=== PATIENT | female | born 1980 | race Caucasian/White ===

== ENCOUNTER 2016-08-01 09:21 | Emergency (ER) | payer OTHER ==
[~2016-08-01 09:21] MED LIST: ACET50TA PO; ANUS2.5C2 PR; DOCU10ELUD PO; IBUP80TA PO; MOM30SS PO; [UNRECOGNIZED DRUG - OTHER] PO
[2016-08-01] MEDS ORDERED: METOCLOPRAMIDE INJ 10MG/2ML VIAL (J2765) As Ordered ONE (10:32)
[2016-08-01 10:36] LABS: MEAN CORPUSCULAR HEMOGLOBIN 30.3 pg (27.0-33.0); MEAN CORPUSCULAR HGB CONC 32.9 g/dl (32.0-36.5); MEAN CORPUSCULAR VOLUME 92.2 fl (80.0-96.0); RED CELL DISTRIBUTION WIDTH 11.8 % (11.5-14.5); WHITE BLOOD COUNT 6.7 K/mm3 (4.0-10.0)
[2016-08-01 11:16] LABS: ALBUMIN 4.2 GM/DL (3.2-5.2); ALBUMIN/GLOBULIN RATIO 1.17 (1.00-1.93); ALKALINE PHOSPHATASE 43 U/L (45-117); ALT/SGPT 18 U/L (12-78); ANION GAP 12 MEQ/L (8-16); AST/SGOT 14 U/L (15-37); BILIRUBIN,TOTAL 0.4 MG/DL (0.2-1.0); BLOOD UREA NITROGEN 8 MG/DL (7-18); CALCIUM LEVEL 8.9 MG/DL (8.5-10.1); CARBON DIOXIDE LEVEL 24 MEQ/L (21-32); CHLORIDE LEVEL 104 MEQ/L (98-107); CREATININE FOR GFR 0.78 MG/DL (0.55-1.02); GLOMERULAR FILTRATION RATE > 60.0 (>60); GLUCOSE, FASTING 94 MG/DL (70-105); HCG, SERUM QUANTITATIVE 82916 MIU/ML; POTASSIUM SERUM 4.1 MEQ/L (3.5-5.1); SODIUM LEVEL 140 MEQ/L (136-145); TOTAL PROTEIN 7.8 GM/DL (6.4-8.2)
--- NOTE | 2016-08-01 12:08 | EDDOCDS ---
Nurse's Notes [facility] Name: Katarina Newberry Age: 35 yrs Sex: Female : 1980 Arrival Date: 08/01/2016 Time: 09:21 Bed I4 / M4 Private MD: Jeniffer Gamez Diagnosis: related conditions, unspecified, first trimester-SIUP 7 weeks 5 days;Abnormal uterine and vaginal bleeding, unspecified;Pelvic and perineal pain Presentation: 08/01 09:27 Presenting complaint: Patient states: states ?8 weeks , vaginal bleeding and ml6 cramping since states 1 pad every 5 hours. Risk factors: The patient reports no loss of conciousness prior to arrival. This patient has not had a hysterectomy. This patient has not begun menopause. Adult Sepsis Screening: The patient does not have new or worsening altered mentation. Patient's respiratory rate is less than 22. Systolic blood pressure is greater than 100. Patient has a qSOFA score of 0- Negative Sepsis Screen. Suicide/Homicide risk assessment- the patient denies having any suicidal and/or homicidal ideations and does not present with any other emotional, behavioral or mental health complaints. 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 Transition of care: patient was not received from another setting of care. 09:27 Acuity: HANH Level 3 ml6 09:27 Method Of Arrival: Walkin/Carried/Asstd ml6 Triage Assessment: 09:30 General: Appears in no apparent distress, Behavior is appropriate for age, cooperative. ml6 Pain: Location: abdomen Pain currently is 3 out of 10 on a pain scale. Pain does not radiate. Quality of pain is described as crampy, Pain began 2-3 days ago Is continuous Alleviated by nothing. Aggravated by increased activity. HIV screening NA for this visit Offered previously. Neurological: No deficits noted. Cardiovascular: No deficits noted. : Reports vaginal bleeding that is light flow since . 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 none - PMHx: none; - PSHx: none; - Social history: Smoking status: Patient states was never smoker of tobacco. No barriers to communication noted, Speaks appropriately for age. - Family history: Not pertinent. - : The pt / caregiver states he / she is not on anticoagulants. Home medication list is obtained from the patient. - Exposure Risk Screening:: None identified. Screenin:31 Screening information is obtained from the patient. Fall risk: No risks identified. kr3 Assistance ADL's: requires no assistance with activities of daily living. Abuse/DV Screen: The patient / caregiver reports he/she is: not in a situation that causes fear, pain or injury. Nutritional screening: No deficits noted. Advance Directives: Currently, there is no health care proxy. home support is adequate. Assessment: 10:30 General: Appears in no apparent distress, comfortable, Behavior is appropriate for age, kr3 cooperative. Pain: Pain currently is 2 out of 10 on a pain scale. Quality of pain is described as crampy. Respiratory: Respiratory effort is even, unlabored. : deferred to provider Reports vaginal bleeding that is light flow. Derm: Skin is normal. 11:16 Reassessment: Patient appears in no apparent distress at this time. Neurological: Level kr3 of Consciousness is awake, alert. 12:07 Reassessment: Patient appears in no apparent distress at this time. Patient denies pain kr3 at this time. Vital Signs: 09:23 BP 132 / 76; Pulse 77; Resp 18 S; Temp 98.8(O); Pulse Ox 100% on R/A; Weight 79.38 kg dd6 (R); Height 5 ft. 8 in. (172.72 cm) (R); 12:06 BP 115 / 75; Pulse 73; Resp 16; Temp 99(O); Pulse Ox 97% on R/A; kr3 09:23 Body Mass Index 26.61 (79.38 kg, 172.72 cm) dd6 Vitals: 09:23 Log In Time: August 01, 2016 at 09:20. dd6 ED Course: 09:23 Patient visited by Fito Potts PCA. dd6 09:23 Jeniffer Gamez is Private Physician. dd6 09:23 Patient moved to Waiting dd6 09:24 Patient moved to Pre RCE dd6 09:28 Triage Initiated ml6 10:02 Eryn Mayorga PA-C is PHCP. ef1 10:02 Salvador Valadez MD is Attending Physician. ef1 10:03 Patient visited by Eryn Mayorga PA-C. ef1 10:03 Patient moved to I4 / M4 jmk 10:25 Patient moved to Ultrasound sm5 10:30 Complete Blood Count Sent. kr3 10:30 Hcg, Serum Quantitative Sent. kr3 10:30 Urinalysis Sent. kr3 10:30 Urine Culture Sent. kr3 10:30 Complete Comphrensive Metabolic Sent. kr3 10:31 The patient / caregiver is instructed regarding the plan of care and ED course. Patient kr3 has correct armband on for positive identification. Placed in gown. Bed in low position. Call light in reach. Side rails up X 1. 10:31 Inserted saline lock: 20 gauge in left antecubital area and blood collected. The kr3 patient tolerated the procedure well. 11:14 Patient moved to I4 / M4 jam1 11:15 Patient visited by Sara Briggs RN. kr3 11:47 Patient visited by Eryn Mayorga PA-C. ef1 11:57 Dami Kelley MD is Referral Physician. ef1 11:58 No procedures done that require assistance. kr3 12:07 Discontinued lock intact, bleeding controlled, pressure dressing applied, No kr3 redness/swelling at site. Administered Medications: 11:16 Drug: NS 0.9% 1000 ml [sodium chloride 0.9 % intravenous solution] Route: IV; Rate: kr3 bolus; Site: left antecubital; 12:06 Follow up: BP 115 / 75; Pulse 73 bpm; Resp 16 bpm; Temp 99 Oral; Pulse Ox 97% RA; IV kr3 Status: Infusion discontinued; IV Intake: 600ml 11:16 Drug: Metoclopramide 10 mg [metoclopramide 5 mg/mL injection solution] Route: IV; Rate: kr3 40 mg/hr; Infused Over: 15 mins; Site: left antecubital; 11:58 Follow up: IV Status: Completed infusion kr3 Intake: 12:06 IV: 600.00ml; Total: 600.00ml. kr3 Order Results: Lab Order: Complete Blood Count; SPEC'M 08/01/16 10:27 Test: WHITE BLOOD COUNT; Value: 6.7; Range: 4.0-10.0; Units: K/mm3; Status: F Test: RED BLOOD COUNT; Value: 4.08; Range: 4.00-5.40; Units: M/mm3; Status: F Test: HEMOGLOBIN; Value: 12.4; Range: 12.0-16.0; Units: g/dl; Status: F Test: HEMATOCRIT; Value: 37.7; Range: 36.0-47.0; Units: %; Status: F Test: MEAN CORPUSCULAR VOLUME; Value: 92.2; Range: 80.0-96.0; Units: fl; Status: F Test: MEAN CORPUSCULAR HEMOGLOBIN; Value: 30.3; Range: 27.0-33.0; Units: pg; Status: F Test: MEAN CORPUSCULAR HGB CONC; Value: 32.9; Range: 32.0-36.5; Units: g/dl; Status: F Test: RED CELL DISTRIBUTION WIDTH; Value: 11.8; Range: 11.5-14.5; Units: %; Status: F Test: PLATELET COUNT, AUTOMATED; Value: 266; Range: 150-450; Units: k/mm3; Status: F Lab Order: Hcg, Serum Quantitative; SPEC'M 08/01/16 10:27 Test: HCG, SERUM QUANTITATIVE; Value: [id number]; Units: MIU/ML; Status: F Test Note: ; GESTATIONAL AGE APPROXIMATE HCG RANGE (MIU/ML) 0.2-1 WEEK 5-50 1-2 WEEKS 50-500 2-3 WEEKS 100-5,000 3-4 WEEKS 500-10,000 4-5 WEEKS 1,000-50,000 5-6 WEEKS 10,000-100,000 6-8 WEEKS 15,000-200,000 2-3 MONTHS 10,000-100,000 NON FEMALES LESS THAN 3.0 Patient samples may contain human heterophilic antibodies that could react with immunoassays to give falsely elevated or depressed results. This assay has been designed to minimize interference from heterophilic antibodies. Elevated hCG levels have also been associated with trophoblastic disease and nontrophoblastic neoplasms. The possibility of having these diseases should be considered before a diagnosis of is made. This test is not intended for use as a surrogate marker for aiding in the diagnosis or monitoring the treatment of cancer patients. [employer] methodology. Lab Order: Urinalysis; SPEC'M 08/01/16 10:27 Test: APPEARANCE, URINE; Value: CLEAR; Range: CLEAR; Status: F Test: COLOR, URINE; Value: YELLOW; Range: YELLOW; Status: F Test: PH,URINE; Value: 7.0; Range: 5.0-9.0; Units: UNITS; Status: F Test: SPECIFIC GRAVITY URINE AUTO; Value: 1.006; Range: 1.002-1.035; Status: F Test: PROTEIN, URINE AUTO; Value: NEGATIVE; Range: NEGATIVE; Units: mg/dL; Status: F Test: GLUCOSE, URINE (UA) AUTO; Value: NEGATIVE; Range: NEGATIVE; Units: mg/dL; Status: F Test: KETONE, URINE AUTO; Value: NEGATIVE; Range: NEGATIVE; Units: mg/dL; Status: F Test: UROBILINOGEN, URINE AUTO; Value: 0.2; Range: 0.0-2.0; Units: mg/dL; Status: F Test: BILIRUBIN, URINE AUTO; Value: NEGATIVE; Range: NEGATIVE; Status: F Test: NITRITE, URINE AUTO; Value: NEGATIVE; Range: NEGATIVE; Status: F Test: LEUKOCYTE ESTERASE, URINE AUTO; Value: NEGATIVE; Range: NEGATIVE; Status: F Test: BLOOD, URINE BLOOD; Value: NEGATIVE; Range: NEGATIVE; Status: F Test: WBC, URINE AUTO; Value: 0; Range: 0-3; Units: /HPF; Status: F Test: RBC, URINE AUTO; Value: 0; Range: 0-3; Units: /HPF; Status: F Test: BACTERIA, URINE AUTO; Value: 1+; Range: NEGATIVE; Abnormal: Above high normal; Status: F Test: SQUAMOUS EPITHELIAL CELL UR AU; Value: 0; Range: 0-6; Units: /HPF; Status: F Test: MUCUS, URINE; Value: SMALL; Range: NEGATIVE; Status: F Test: HYALINE CAST, URINE AUTO; Value: 0; Range: 0-1; Units: /LPF; Status: F Lab Order: Complete Comphrensive Metabolic; SPEC'M 08/01/16 10:27 Test: GLUCOSE, FASTING; Value: 94; Range: 70-105; Units: MG/DL; Status: F Test: BLOOD UREA NITROGEN; Value: 8; Range: 7-18; Units: MG/DL; Status: F Test: CREATININE FOR GFR; Value: 0.78; Range: 0.55-1.02; Units: MG/DL; Status: F Test: GLOMERULAR FILTRATION RATE; Value: > 60.0; Range: >60; Status: F Test: SODIUM LEVEL; Value: 140; Range: 136-145; Units: MEQ/L; Status: F Test: POTASSIUM SERUM; Value: 4.1; Range: 3.5-5.1; Units: MEQ/L; Status: F Test: CHLORIDE LEVEL; Value: 104; Range: 98-107; Units: MEQ/L; Status: F Test: CARBON DIOXIDE LEVEL; Value: 24; Range: 21-32; Units: MEQ/L; Status: F Test: ANION GAP; Value: 12; Range: 8-16; Units: MEQ/L; Status: F Test: CALCIUM LEVEL; Value: 8.9; Range: 8.5-10.1; Units: MG/DL; Status: F Test: AST/SGOT; Value: 14; Range: 15-37; Abnormal: Below low normal; Units: U/L; Status: F Test: ALT/SGPT; Value: 18; Range: 12-78; Units: U/L; Status: F Test: ALKALINE PHOSPHATASE; Value: 43; Range: 45-117; Abnormal: Below low normal; Units: U/L; Status: F Test: BILIRUBIN,TOTAL; Value: 0.4; Range: 0.2-1.0; Units: MG/DL; Status: F Test: TOTAL PROTEIN; Value: 7.8; Range: 6.4-8.2; Units: GM/DL; Status: F Test: ALBUMIN; Value: 4.2; Range: 3.2-5.2; Units: GM/DL; Status: F Test: ALBUMIN/GLOBULIN RATIO; Value: 1.17; Range: 1.00-1.93; Status: F Test Note: ; Units are mL/min/1.73 m2 Chronic Kidney Disease Staging per NKF: Stage I & II GFR >=60 Normal to Mildly Decreased Stage III GFR 30-59 Moderately Decreased Stage IV GFR 15-29 Severely Decreased Stage V GFR <15 Very Little GFR Left ESRD GFR <15 on [employer]CHO[employer] Outcome: 10:31 Ultrasound Study completed. kr3 11:57 Discharge ordered by Provider. ef1 12:07 Discharge Assessment: patient administered narcotics - no. The following High Risk kr3 Discharge criteria are identified: None. Discharged to home ambulatory. Condition: stable. Discharge instructions given to patient, Instructed on discharge instructions, follow up and referral plans. medication usage, Demonstrated understanding of instructions, medications, Pt was receptive of discharge instructions/ teaching. Prescriptions given X 1. Property sent home with patient. 12:07 Patient left the ED. kr3 Signatures: William Dahl,RN RN Haley De Souza, CUSTOMS CONSULTANT CUSTOMS CONSULTANT jam1 Madai Jean Baptiste sm5 Sara Briggs,RN RN kr3 Fito Potts, CUSTOMS CONSULTANT CUSTOMS CONSULTANT dd6 Eryn Mayorga, PA-C PA-C ef1 Ramone Devries, RN RN ml6 Corrections: (The following items were deleted from the chart) 09:29 09:27 Presenting complaint: Patient states: states ?8 weeks , vaginal bleeding ml6 and cramping since ml6 MTDD
--- NOTE | 2016-08-01 12:08 | EDDOCDS ---
Physician Documentation [facility] Name: Katarina eNwberry Age: 35 yrs Sex: Female : 1980 Arrival Date: 08/01/2016 Time: 09:21 Bed I4 / M4 Private MD: Jeniffer Gamez Disposition: 08/01/16 11:57 Discharged to Home/Self Care. Impression: related conditions, unspecified, first trimester - SIUP 7 weeks 5 days, Abnormal uterine and vaginal bleeding, unspecified, Pelvic and perineal pain. - Condition is Stable. - Discharge Instructions: Medicines During , First Trimester of , Kqqb-vb-Oksi, Abdominal Pain During , Wowk-qm-Gvjw. - Prescriptions for Reglan 10 mg Oral Tablet - take 1 tablet by ORAL route every 6 hours take 30 minutes before meals and at bedtime; 20 tablet. - Medication Reconciliation, Local Pharmacy Hours form. - Follow up: Dami Kelley; When: 1 - 2 days; Reason: Further diagnostic work-up, Recheck today's complaints, Continuance of care. Follow up: Emergency Department; Reason: Worsening of conditions. - Problem is new. - Symptoms have improved. Historical: - Allergies: no known allergies; - Home Meds: 1. none - PMHx: none; - PSHx: none; - Social history: Smoking status: Patient states was never smoker of tobacco. No barriers to communication noted, Speaks appropriately for age. - Family history: Not pertinent. - : The pt / caregiver states he / she is not on anticoagulants. Home medication list is obtained from the patient. - Exposure Risk Screening:: None identified. 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 8 in. (172.72 cm) (R); 12:06 BP 115 / 75; Pulse 73; Resp 16; Temp 99(O); Pulse Ox 97% on R/A; kr3 09:23 Body Mass Index 26.61 (79.38 kg, 172.72 cm) dd6 MDM: 10:15 IV Saline Lock ordered. ef1 10:15 Undress patient appropriately for examination ordered. ef1 10:15 NS 0.9% 1000 ml IV at bolus once ordered. ef1 10:16 US 1st trimester Ordered. EDMS 10:16 Complete Blood Count Ordered. EDMS 10:16 Hcg, Serum Quantitative Ordered. EDMS 10:16 Urinalysis Ordered. EDMS 10:17 Urine Culture Ordered. EDMS 10:17 Complete Comphrensive Metabolic Ordered. EDMS 10:19 Metoclopramide 10 mg IV at 40 mg/hr once over 15 mins ordered. ef1 10:56 TRANSVAGINAL US Ordered. EDMS 10:56 DUPLEX SCAN LIMITED (DOPPLER) Ordered. EDMS 11:48 Urinalysis Reviewed. ef1 11:48 Complete Comphrensive Metabolic Reviewed. ef1 11:48 Complete Blood Count Reviewed. ef1 11:48 Hcg, Serum Quantitative Reviewed. ef1 Administered Medications: 11:16 Drug: NS 0.9% 1000 ml [sodium chloride 0.9 % intravenous solution] Route: IV; Rate: kr3 bolus; Site: left antecubital; 12:06 Follow up: BP 115 / 75; Pulse 73 bpm; Resp 16 bpm; Temp 99 Oral; Pulse Ox 97% RA; IV kr3 Status: Infusion discontinued; IV Intake: 600ml 11:16 Drug: Metoclopramide 10 mg [metoclopramide 5 mg/mL injection solution] Route: IV; Rate: kr3 40 mg/hr; Infused Over: 15 mins; Site: left antecubital; 11:58 Follow up: IV Status: Completed infusion kr3 Signatures: Dispatcher [employer] EDMS Sara Briggs,RN RN kr3 Eyrn Mayorga, PA-C PAWilliamsC ef1 Ramone Devries RN RN ml6 The chart was reviewed and I authenticate all verbal orders and agree with the evaluation and treatment provided.Corrections: (The following items were deleted from the chart) 10:23 10:16 TYPE & SCREEN+BBK ordered. EDMS EDMS MTDD
--- NOTE | 2016-08-01 13:59 | REP ---
Obstetric sonography: History: Vaginal bleeding. Findings: Transabdominal and transvaginal scanning demonstrate a viable single intrauterine gestation. The embryonic pole measures 14 mm in crown-rump length. This corresponds to a gestational age estimate of 7 weeks 5 days. heart rate is recorded at 160 beats per minute. No subchorionic hemorrhage is seen. There is a 1.2 cm hypoechoic cyst in the maternal left ovary consistent with corpus luteum. No gross anomaly is seen. Impression: Viable single intrauterine gestation at 7 weeks 5 days by crown-rump length. ASIF by today's sonography March 15, 2017. No complication is identified. Signed by Steve Josue MD 08/01/2016 03:18 P
--- NOTE | 2016-08-03 13:08 | EDDOCDS ---
Physician Documentation [facility] Name: Katarina Newberry Age: 35 yrs Sex: Female : 1980 Arrival Date: 08/01/2016 Time: 09:21 Bed I4 / M4 Private MD: Jeniffer Gamez Disposition: 08/01/16 11:57 Discharged to Home/Self Care. Impression: related conditions, unspecified, first trimester - SIUP 7 weeks 5 days, Abnormal uterine and vaginal bleeding, unspecified, Pelvic and perineal pain. - Condition is Stable. - Discharge Instructions: Medicines During , First Trimester of , Pprh-tm-Gqnv, Abdominal Pain During , Klap-qn-Krhy. - Prescriptions for Reglan 10 mg Oral Tablet - take 1 tablet by ORAL route every 6 hours take 30 minutes before meals and at bedtime; 20 tablet. - Medication Reconciliation, Local Pharmacy Hours form. - Follow up: Dami Kelley; When: 1 - 2 days; Reason: Further diagnostic work-up, Recheck today's complaints, Continuance of care. Follow up: Emergency Department; Reason: Worsening of conditions. - Problem is new. - Symptoms have improved. Historical: - Allergies: no known allergies; - Home Meds: 1. none - PMHx: none; - PSHx: none; - Social history: Smoking status: Patient states was never smoker of tobacco. No barriers to communication noted, Speaks appropriately for age. - Family history: Not pertinent. - : The pt / caregiver states he / she is not on anticoagulants. Home medication list is obtained from the patient. - Exposure Risk Screening:: None identified. 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 8 in. (172.72 cm) (R); 12:06 BP 115 / 75; Pulse 73; Resp 16; Temp 99(O); Pulse Ox 97% on R/A; kr3 09:23 Body Mass Index 26.61 (79.38 kg, 172.72 cm) dd6 MDM: 10:15 IV Saline Lock ordered. ef1 10:15 Undress patient appropriately for examination ordered. ef1 10:15 NS 0.9% 1000 ml IV at bolus once ordered. ef1 10:16 US 1st trimester Ordered. EDMS 10:16 Complete Blood Count Ordered. EDMS 10:16 Hcg, Serum Quantitative Ordered. EDMS 10:16 Urinalysis Ordered. EDMS 10:17 Urine Culture Ordered. EDMS 10:17 Complete Comphrensive Metabolic Ordered. EDMS 10:19 Metoclopramide 10 mg IV at 40 mg/hr once over 15 mins ordered. ef1 10:56 TRANSVAGINAL US Ordered. EDMS 10:56 DUPLEX SCAN LIMITED (DOPPLER) Ordered. EDMS 11:48 Urinalysis Reviewed. ef1 11:48 Complete Comphrensive Metabolic Reviewed. ef1 11:48 Complete Blood Count Reviewed. ef1 11:48 Hcg, Serum Quantitative Reviewed. ef1 12:09 [facility] [place] was scanned into [employer] and attached to record. jp5 12:09 Financial registration complete. 5 14:49 T-Sheet-- Draft Copy was scanned into [employer] and attached to record. 14:49 Radiology Report was scanned into [employer] and attached to record. Administered Medications: 11:16 Drug: NS 0.9% 1000 ml [sodium chloride 0.9 % intravenous solution] Route: IV; Rate: kr3 bolus; Site: left antecubital; 12:06 Follow up: BP 115 / 75; Pulse 73 bpm; Resp 16 bpm; Temp 99 Oral; Pulse Ox 97% RA; IV kr3 Status: Infusion discontinued; IV Intake: 600ml 11:16 Drug: Metoclopramide 10 mg [metoclopramide 5 mg/mL injection solution] Route: IV; Rate: kr3 40 mg/hr; Infused Over: 15 mins; Site: left antecubital; 11:58 Follow up: IV Status: Completed infusion kr3 Signatures: Dispatcher [employer] EDMS Stacy Salazar, Sara Douglas RN RN kr3 Eryn Mayorga PA-C PAWilliamsC ef1 Ramone Devries RN RN ml6 Melisa Miller 5 The chart was reviewed and I authenticate all verbal orders and agree with the evaluation and treatment provided.Corrections: (The following items were deleted from the chart) 10:23 10:16 TYPE & SCREEN+BBK ordered. EDMS EDMS Attachments: 12:09 [facility] Payment Agreement jp5 14:49 T-Sheet-- Draft Copy gb Chart Complete MTDD
--- NOTE | 2016-08-03 13:08 | EDDOCDS ---
Physician Documentation [facility] Name: Katarina Newberry Age: 35 yrs Sex: Female : 1980 Arrival Date: 08/01/2016 Time: 09:21 Bed I4 / M4 Private MD: Jeniffer Gaemz Disposition: 08/01/16 11:57 Discharged to Home/Self Care. Impression: related conditions, unspecified, first trimester - SIUP 7 weeks 5 days, Abnormal uterine and vaginal bleeding, unspecified, Pelvic and perineal pain. - Condition is Stable. - Discharge Instructions: Medicines During , First Trimester of , Ywvk-xd-Zehl, Abdominal Pain During , Rrye-dj-Igzn. - Prescriptions for Reglan 10 mg Oral Tablet - take 1 tablet by ORAL route every 6 hours take 30 minutes before meals and at bedtime; 20 tablet. - Medication Reconciliation, Local Pharmacy Hours form. - Follow up: Dami Kelley; When: 1 - 2 days; Reason: Further diagnostic work-up, Recheck today's complaints, Continuance of care. Follow up: Emergency Department; Reason: Worsening of conditions. - Problem is new. - Symptoms have improved. Historical: - Allergies: no known allergies; - Home Meds: 1. none - PMHx: none; - PSHx: none; - Social history: Smoking status: Patient states was never smoker of tobacco. No barriers to communication noted, Speaks appropriately for age. - Family history: Not pertinent. - : The pt / caregiver states he / she is not on anticoagulants. Home medication list is obtained from the patient. - Exposure Risk Screening:: None identified. 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 8 in. (172.72 cm) (R); 12:06 BP 115 / 75; Pulse 73; Resp 16; Temp 99(O); Pulse Ox 97% on R/A; kr3 09:23 Body Mass Index 26.61 (79.38 kg, 172.72 cm) dd6 MDM: 10:15 IV Saline Lock ordered. ef1 10:15 Undress patient appropriately for examination ordered. ef1 10:15 NS 0.9% 1000 ml IV at bolus once ordered. ef1 10:16 US 1st trimester Ordered. EDMS 10:16 Complete Blood Count Ordered. EDMS 10:16 Hcg, Serum Quantitative Ordered. EDMS 10:16 Urinalysis Ordered. EDMS 10:17 Urine Culture Ordered. EDMS 10:17 Complete Comphrensive Metabolic Ordered. EDMS 10:19 Metoclopramide 10 mg IV at 40 mg/hr once over 15 mins ordered. ef1 10:56 TRANSVAGINAL US Ordered. EDMS 10:56 DUPLEX SCAN LIMITED (DOPPLER) Ordered. EDMS 11:48 Urinalysis Reviewed. ef1 11:48 Complete Comphrensive Metabolic Reviewed. ef1 11:48 Complete Blood Count Reviewed. ef1 11:48 Hcg, Serum Quantitative Reviewed. ef1 12:09 [facility] [place] Agreement was scanned into [email or web address] and attached to record. jp5 12:09 Financial registration complete. 5 14:49 T-Sheet-- Draft Copy was scanned into [email or web address] and attached to record. 14:49 Radiology Report was scanned into [email or web address] and attached to record. Administered Medications: 11:16 Drug: NS 0.9% 1000 ml [sodium chloride 0.9 % intravenous solution] Route: IV; Rate: kr3 bolus; Site: left antecubital; 12:06 Follow up: BP 115 / 75; Pulse 73 bpm; Resp 16 bpm; Temp 99 Oral; Pulse Ox 97% RA; IV kr3 Status: Infusion discontinued; IV Intake: 600ml 11:16 Drug: Metoclopramide 10 mg [metoclopramide 5 mg/mL injection solution] Route: IV; Rate: kr3 40 mg/hr; Infused Over: 15 mins; Site: left antecubital; 11:58 Follow up: IV Status: Completed infusion kr3 Signatures: Dispatcher [employer] EDMS Stacy Salazar, Sara Douglas RN RN kr3 Eryn Mayorga PA-C PAWilliamsC ef1 Ramone Devries RN RN ml6 Melisa Miller 5 The chart was reviewed and I authenticate all verbal orders and agree with the evaluation and treatment provided.Corrections: (The following items were deleted from the chart) 10:23 10:16 TYPE & SCREEN+BBK ordered. EDMS EDMS Attachments: 12:09 [facility] Payment Agreement jp5 14:49 T-Sheet-- Draft Copy gb Chart Complete MTDD
--- NOTE | 2016-08-03 13:08 | EDDOCDS ---
Nurse's Notes [facility] Name: Katarina Newberry Age: 35 yrs Sex: Female : 1980 Arrival Date: 08/01/2016 Time: 09:21 Bed I4 / M4 Private MD: Jeniffer Gamez Diagnosis: related conditions, unspecified, first trimester-SIUP 7 weeks 5 days;Abnormal uterine and vaginal bleeding, unspecified;Pelvic and perineal pain Presentation: 08/01 09:27 Presenting complaint: Patient states: states ?8 weeks , vaginal bleeding and ml6 cramping since states 1 pad every 5 hours. Risk factors: The patient reports no loss of conciousness prior to arrival. This patient has not had a hysterectomy. This patient has not begun menopause. Adult Sepsis Screening: The patient does not have new or worsening altered mentation. Patient's respiratory rate is less than 22. Systolic blood pressure is greater than 100. Patient has a qSOFA score of 0- Negative Sepsis Screen. Suicide/Homicide risk assessment- the patient denies having any suicidal and/or homicidal ideations and does not present with any other emotional, behavioral or mental health complaints. Status: Patient is not a supervisor special services or dependent. Transition of care: patient was not received from another setting of care. 09:27 Acuity: HANH Level 3 ml6 09:27 Method Of Arrival: Walkin/Carried/Asstd ml6 Triage Assessment: 09:30 General: Appears in no apparent distress, Behavior is appropriate for age, cooperative. ml6 Pain: Location: abdomen Pain currently is 3 out of 10 on a pain scale. Pain does not radiate. Quality of pain is described as crampy, Pain began 2-3 days ago Is continuous Alleviated by nothing. Aggravated by increased activity. HIV screening NA for this visit Offered previously. Neurological: No deficits noted. Cardiovascular: No deficits noted. : Reports vaginal bleeding that is light flow since . 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 none - PMHx: none; - PSHx: none; - Social history: Smoking status: Patient states was never smoker of tobacco. No barriers to communication noted, Speaks appropriately for age. - Family history: Not pertinent. - : The pt / caregiver states he / she is not on anticoagulants. Home medication list is obtained from the patient. - Exposure Risk Screening:: None identified. Screenin:31 Screening information is obtained from the patient. Fall risk: No risks identified. kr3 Assistance ADL's: requires no assistance with activities of daily living. Abuse/DV Screen: The patient / caregiver reports he/she is: not in a situation that causes fear, pain or injury. Nutritional screening: No deficits noted. Advance Directives: Currently, there is no health care proxy. home support is adequate. Assessment: 10:30 General: Appears in no apparent distress, comfortable, Behavior is appropriate for age, kr3 cooperative. Pain: Pain currently is 2 out of 10 on a pain scale. Quality of pain is described as crampy. Respiratory: Respiratory effort is even, unlabored. : deferred to provider Reports vaginal bleeding that is light flow. Derm: Skin is normal. 11:16 Reassessment: Patient appears in no apparent distress at this time. Neurological: Level kr3 of Consciousness is awake, alert. 12:07 Reassessment: Patient appears in no apparent distress at this time. Patient denies pain kr3 at this time. Vital Signs: 09:23 BP 132 / 76; Pulse 77; Resp 18 S; Temp 98.8(O); Pulse Ox 100% on R/A; Weight 79.38 kg dd6 (R); Height 5 ft. 8 in. (172.72 cm) (R); 12:06 BP 115 / 75; Pulse 73; Resp 16; Temp 99(O); Pulse Ox 97% on R/A; kr3 09:23 Body Mass Index 26.61 (79.38 kg, 172.72 cm) dd6 Vitals: 09:23 Log In Time: August 01, 2016 at 09:20. dd6 ED Course: 09:23 Patient visited by Fito Potts PCA. dd6 09:23 Jeniffer Gamez is Private Physician. dd6 09:23 Patient moved to Waiting dd6 09:24 Patient moved to Pre RCE dd6 09:28 Triage Initiated ml6 10:02 Eryn Mayroga PA-C is PHCP. ef1 10:02 Salvador Valadez MD is Attending Physician. ef1 10:03 Patient visited by Eryn Mayorga PA-C. ef1 10:03 Patient moved to I4 / M4 jmk 10:25 Patient moved to Ultrasound sm5 10:30 Complete Blood Count Sent. kr3 10:30 Hcg, Serum Quantitative Sent. kr3 10:30 Urinalysis Sent. kr3 10:30 Urine Culture Sent. kr3 10:30 Complete Comphrensive Metabolic Sent. kr3 10:31 The patient / caregiver is instructed regarding the plan of care and ED course. Patient kr3 has correct armband on for positive identification. Placed in gown. Bed in low position. Call light in reach. Side rails up X 1. 10:31 Inserted saline lock: 20 gauge in left antecubital area and blood collected. The kr3 patient tolerated the procedure well. 11:14 Patient moved to I4 / M4 jam1 11:15 Patient visited by Sara Briggs RN. kr3 11:47 Patient visited by Eryn Mayorga PA-C. ef1 11:57 Dami Kelley MD is Referral Physician. ef1 11:58 No procedures done that require assistance. kr3 12:07 Discontinued lock intact, bleeding controlled, pressure dressing applied, No kr3 redness/swelling at site. 12:09 [facility] Payment Agreement was scanned into [employer] and attached to record. jp5 13:33 Patient name changed from Katarina\S\A\S\Coni\S\ to Katarina\S\Charisse\S\Coni. EDMS 14:15 US 1st trimester Returned. EDMS 14:49 T-Sheet-- Draft Copy was scanned into [employer] and attached to record. gb 14:49 Radiology Report was scanned into [employer] and attached to record. gb Administered Medications: 11:16 Drug: NS 0.9% 1000 ml [sodium chloride 0.9 % intravenous solution] Route: IV; Rate: kr3 bolus; Site: left antecubital; 12:06 Follow up: BP 115 / 75; Pulse 73 bpm; Resp 16 bpm; Temp 99 Oral; Pulse Ox 97% RA; IV kr3 Status: Infusion discontinued; IV Intake: 600ml 11:16 Drug: Metoclopramide 10 mg [metoclopramide 5 mg/mL injection solution] Route: IV; Rate: kr3 40 mg/hr; Infused Over: 15 mins; Site: left antecubital; 11:58 Follow up: IV Status: Completed infusion kr3 Intake: 12:06 IV: 600.00ml; Total: 600.00ml. kr3 Order Results: Lab Order: Complete Blood Count; [facility] 08/01/16 10:27 Test: WHITE BLOOD COUNT; Value: 6.7; Range: 4.0-10.0; Units: K/mm3; Status: F Test: RED BLOOD COUNT; Value: 4.08; Range: 4.00-5.40; Units: M/mm3; Status: F Test: HEMOGLOBIN; Value: 12.4; Range: 12.0-16.0; Units: g/dl; Status: F Test: HEMATOCRIT; Value: 37.7; Range: 36.0-47.0; Units: %; Status: F Test: MEAN CORPUSCULAR VOLUME; Value: 92.2; Range: 80.0-96.0; Units: fl; Status: F Test: MEAN CORPUSCULAR HEMOGLOBIN; Value: 30.3; Range: 27.0-33.0; Units: pg; Status: F Test: MEAN CORPUSCULAR HGB CONC; Value: 32.9; Range: 32.0-36.5; Units: g/dl; Status: F Test: RED CELL DISTRIBUTION WIDTH; Value: 11.8; Range: 11.5-14.5; Units: %; Status: F Test: PLATELET COUNT, AUTOMATED; Value: 266; Range: 150-450; Units: k/mm3; Status: F Lab Order: Hcg, Serum Quantitative; [facility] 08/01/16 10:27 Test: HCG, SERUM QUANTITATIVE; Value: 71582; Units: MIU/ML; Status: F Test Note: ; GESTATIONAL AGE APPROXIMATE HCG RANGE (MIU/ML) 0.2-1 WEEK 5-50 1-2 WEEKS 50-500 2-3 WEEKS 100-5,000 3-4 WEEKS 500-10,000 4-5 WEEKS 1,000-50,000 5-6 WEEKS 10,000-100,000 6-8 WEEKS 15,000-200,000 2-3 MONTHS 10,000-100,000 NON FEMALES LESS THAN 3.0 Patient samples may contain human heterophilic antibodies that could react with immunoassays to give falsely elevated or depressed results. This assay has been designed to minimize interference from heterophilic antibodies. Elevated hCG levels have also been associated with trophoblastic disease and nontrophoblastic neoplasms. The possibility of having these diseases should be considered before a diagnosis of is made. This test is not intended for use as a surrogate marker for aiding in the diagnosis or monitoring the treatment of cancer patients. Siemens SensibleSelf methodology. Lab Order: Urinalysis; SPEC'[facility] 08/01/16 10:27 Test: APPEARANCE, URINE; Value: CLEAR; Range: CLEAR; Status: F Test: COLOR, URINE; Value: YELLOW; Range: YELLOW; Status: F Test: PH,URINE; Value: 7.0; Range: 5.0-9.0; Units: UNITS; Status: F Test: SPECIFIC GRAVITY URINE AUTO; Value: 1.006; Range: 1.002-1.035; Status: F Test: PROTEIN, URINE AUTO; Value: NEGATIVE; Range: NEGATIVE; Units: mg/dL; Status: F Test: GLUCOSE, URINE (UA) AUTO; Value: NEGATIVE; Range: NEGATIVE; Units: mg/dL; Status: F Test: KETONE, URINE AUTO; Value: NEGATIVE; Range: NEGATIVE; Units: mg/dL; Status: F Test: UROBILINOGEN, URINE AUTO; Value: 0.2; Range: 0.0-2.0; Units: mg/dL; Status: F Test: BILIRUBIN, URINE AUTO; Value: NEGATIVE; Range: NEGATIVE; Status: F Test: NITRITE, URINE AUTO; Value: NEGATIVE; Range: NEGATIVE; Status: F Test: LEUKOCYTE ESTERASE, URINE AUTO; Value: NEGATIVE; Range: NEGATIVE; Status: F Test: BLOOD, URINE BLOOD; Value: NEGATIVE; Range: NEGATIVE; Status: F Test: WBC, URINE AUTO; Value: 0; Range: 0-3; Units: /HPF; Status: F Test: RBC, URINE AUTO; Value: 0; Range: 0-3; Units: /HPF; Status: F Test: BACTERIA, URINE AUTO; Value: 1+; Range: NEGATIVE; Abnormal: Above high normal; Status: F Test: SQUAMOUS EPITHELIAL CELL UR AU; Value: 0; Range: 0-6; Units: /HPF; Status: F Test: MUCUS, URINE; Value: SMALL; Range: NEGATIVE; Status: F Test: HYALINE CAST, URINE AUTO; Value: 0; Range: 0-1; Units: /LPF; Status: F Lab Order: Urine Culture; SPEC'M 08/01/16 10:27 Test: URINE CULTURE; Value: <EXTERNAL COMMENT eCWMed> FULL REPORT IN LAB NOTES (eCW and Medent).; Status: F Test: URINE CULTURE; Value: URINE CULTURE RESULT NO GROWTH; Status: F Lab Order: Complete Comphrensive Metabolic; SPEC'M 08/01/16 10:27 Test: GLUCOSE, FASTING; Value: 94; Range: 70-105; Units: MG/DL; Status: F Test: BLOOD UREA NITROGEN; Value: 8; Range: 7-18; Units: MG/DL; Status: F Test: CREATININE FOR GFR; Value: 0.78; Range: 0.55-1.02; Units: MG/DL; Status: F Test: GLOMERULAR FILTRATION RATE; Value: > 60.0; Range: >60; Status: F Test: SODIUM LEVEL; Value: 140; Range: 136-145; Units: MEQ/L; Status: F Test: POTASSIUM SERUM; Value: 4.1; Range: 3.5-5.1; Units: MEQ/L; Status: F Test: CHLORIDE LEVEL; Value: 104; Range: 98-107; Units: MEQ/L; Status: F Test: CARBON DIOXIDE LEVEL; Value: 24; Range: 21-32; Units: MEQ/L; Status: F Test: ANION GAP; Value: 12; Range: 8-16; Units: MEQ/L; Status: F Test: CALCIUM LEVEL; Value: 8.9; Range: 8.5-10.1; Units: MG/DL; Status: F Test: AST/SGOT; Value: 14; Range: 15-37; Abnormal: Below low normal; Units: U/L; Status: F Test: ALT/SGPT; Value: 18; Range: 12-78; Units: U/L; Status: F Test: ALKALINE PHOSPHATASE; Value: 43; Range: 45-117; Abnormal: Below low normal; Units: U/L; Status: F Test: BILIRUBIN,TOTAL; Value: 0.4; Range: 0.2-1.0; Units: MG/DL; Status: F Test: TOTAL PROTEIN; Value: 7.8; Range: 6.4-8.2; Units: GM/DL; Status: F Test: ALBUMIN; Value: 4.2; Range: 3.2-5.2; Units: GM/DL; Status: F Test: ALBUMIN/GLOBULIN RATIO; Value: 1.17; Range: 1.00-1.93; Status: F Test Note: ; Units are mL/min/1.73 m2 Chronic Kidney Disease Staging per NKF: Stage I & II GFR >=60 Normal to Mildly Decreased Stage III GFR 30-59 Moderately Decreased Stage IV GFR 15-29 Severely Decreased Stage V GFR <15 Very Little GFR Left ESRD GFR <15 on CFO CONTROLLER Radiology Order: US 1st trimester Test: US 1st trimester REASON FOR EXAMINATION: Bleeding; Obstetric sonography:; ; History: Vaginal bleeding.; ; Findings: Transabdominal and transvaginal scanning demonstrate a viable single; intrauterine gestation. The embryonic pole measures 14 mm in crown-rump length.; This corresponds to a gestational age estimate of 7 weeks 5 days. heart; rate is recorded at 160 beats per minute. No subchorionic hemorrhage is seen.; There is a 1.2 cm hypoechoic cyst in the maternal left ovary consistent with; corpus luteum. No gross anomaly is seen.; ; Impression:; ; Viable single intrauterine gestation at 7 weeks 5 days by crown-rump length. ASIF; by today's sonography March 15, 2017. No complication is identified.; ; ; Signed by; Steve Josue MD 08/01/2016 03:18 P; Outcome: 10:31 Ultrasound Study completed. kr3 11:57 Discharge ordered by Provider. ef1 12:07 Discharge Assessment: patient administered narcotics - no. The following High Risk kr3 Discharge criteria are identified: None. Discharged to home ambulatory. Condition: stable. Discharge instructions given to patient, Instructed on discharge instructions, follow up and referral plans. medication usage, Demonstrated understanding of instructions, medications, Pt was receptive of discharge instructions/ teaching. Prescriptions given X 1. Property sent home with patient. 12:07 Patient left the ED. kr3 Signatures: Dispatcher [employer] William Watts,RN RN Haley De Souza, BIOPHYSICS PROFESSOR BIOPHYSICS PROFESSOR jam1 Stacy Salazar, Reg Reg Madai Fernandez sm5 Sara Briggs,RN RN kr3 Fito Potts, BIOPHYSICS PROFESSOR BIOPHYSICS PROFESSOR dd6 Eryn Mayorga, PA-C PA-C ef1 Ramone Devries, RN RN ml6 Melisa Miller jp5 Corrections: (The following items were deleted from the chart) 09:29 09:27 Presenting complaint: Patient states: states ?8 weeks , vaginal bleeding ml6 and cramping since ml6 Chart Complete MTDD
== END 2016-08-01 12:07 | disposition home or self-care (01) ==
LOC: M ED 09:21
DX: O20.8 Other hemorrhage in early pregnancy (principal); O34.81 Maternal care for other abnormalities of pelvic organs, first trimester; R10.2 Pelvic and perineal pain; N83.292 Other ovarian cyst, left side; Z3A.01 Less than 8 weeks gestation of pregnancy
CPT/HCPCS: 36415; 76801; 76817; 80053; 81001; 84702; 85027; 87086; 93976; 96365; 99284; J2765

== ENCOUNTER → 2016-10-13 | Outpatient (REF) | payer OTHER ==
[2016-10-15 00:06] LABS: ENDOMYSIAL ABY IgA Negative (Negative)
== END ==
LOC: M LAB REF 11:10
PROVIDERS: ATTEND Internal Medicine Medical Oncology
DX: D50.9 Iron deficiency anemia, unspecified (principal)

== ENCOUNTER → 2016-10-27 | Outpatient (CLI) | payer OTHER ==
--- NOTE | 2016-10-27 20:19 | REP ---
Clinical: Anatomical evaluation. Comparison: 08/01/2016 . Findings: Examination demonstrates a single live intrauterine in cephalic presentation. motion is identified by technologist. Placenta is noted anteriorly and grade zero without evidence for placenta previa or abruption. Amniotic fluid volume is normal. Cervix measures 3.2 cm in length and appears closed. No evidence for nuchal cord. Gestational age by LMP 20 weeks 4 days with ASIF 03/12/2017 . Gestational age by current measurements 20 weeks 1 day with ASIF 03/15/2017 . FHR equals 157 beats per minute. BPD 4.6 cm 19 weeks 5 days HC 17.7 cm 20 weeks 1 day AC 15.7 cm 20 weeks 6 days FL 3.4 cm 20 weeks 4 days HL 3.3 cm 21 weeks 0 days HC/AC ratio 1.13 Estimated weight 366 grams ( 47th percentile). Anatomical assessment demonstrates normal structures including cranium, choroid plexus, cavum, cerebellum/posterior fossa, facial features, lungs, cardiac ventricular outflow tracts, diaphragm, stomach, cord insertion/three-vessel cord, kidneys/bladder, spine, and extremities. Limited evaluation of the four-chamber heart. Impression: 1. Single live intrauterine in cephalic presentation demonstrating appropriate oval growth. 2. Limited evaluation of the heart. An subtle assessment is otherwise complete. 3. 2.2 cm anterior intramural fibroid. Signed by Sudheer De León MD 10/27/2016 04:23 P
== END ==
LOC: M SMT 09:51
PROVIDERS: ATTEND Advanced Practice Midwife
DX: Z36 Encounter for antenatal screening of mother (principal); Z3A.20 20 weeks gestation of pregnancy

== ENCOUNTER → 2016-11-21 | Outpatient (CLI) | payer OTHER ==
--- NOTE | 2016-11-22 12:54 | REP ---
Clinical: Anatomical evaluation. Comparison: 10/27/2016 . Findings: Examination demonstrates a single live intrauterine in cephalic presentation. motion is identified by technologist. Placenta is noted anteriorly and grade the one without evidence for placenta previa or abruption. Amniotic fluid volume is normal. Cervix measures 5.5 cm in length and appears closed. No evidence for nuchal cord. Gestational age by LMP 24 weeks 1 day with ASIF 03/12/2017 . Gestational age by current measurements 24 weeks 0 days with ASIF 03/13/2017 . FHR equals 126 beats per minute. Estimated weight 692 grams ( 53rd percentile). Anatomical assessment demonstrates normal structures including cranium, choroid plexus, cavum, cerebellum/posterior fossa, lungs, four-chamber heart/ left ventricular outflow tract, diaphragm, stomach, cord insertion/three-vessel cord, kidneys/bladder, spine, and extremities. Impression: In conjunction with prior examination anatomical assessment is complete and normal. Small anterior intramural fibroid remains stable. Signed by Sudheer De León MD 11/21/2016 11:03 A
== END ==
LOC: M SMT 09:57
PROVIDERS: ATTEND Specialist
DX: Z36 Encounter for antenatal screening of mother (principal); Z3A.24 24 weeks gestation of pregnancy

== ENCOUNTER → 2016-12-08 | Outpatient (CLI) | payer OTHER ==
[2016-12-08 13:43] LABS: BASO % 0.3 % (0.0-1.0); EOS % 0.5 % (0.0-3.0); LARGE UNSTAINED CELL # 0.1 K/mm3 (0.0-0.4); LARGE UNSTAINED CELL % 0.9 % (0.0-4.0); LYMPH # 1.5 K/mm3 (1.5-4.5); LYMPH % 21.1 % (24.0-44.0); MEAN CORPUSCULAR HEMOGLOBIN 30.9 pg (27.0-33.0); MEAN CORPUSCULAR HGB CONC 33.4 g/dl (32.0-36.5); MEAN CORPUSCULAR VOLUME 92.4 fl (80.0-96.0); MONO # 0.5 K/mm3 (0.0-0.8); MONO % 7.1 % (0.0-5.0); NEUTROPHILS # 4.7 K/mm3 (1.8-7.7); NEUTROPHILS % 70.1 % (36.0-66.0); PLATELET COUNT, AUTOMATED 291 k/mm3 (150-450); RED CELL DISTRIBUTION WIDTH 12.3 % (11.5-14.5); WHITE BLOOD COUNT 6.8 K/mm3 (4.0-10.0)
== END ==
LOC: M SMT 09:52
PROVIDERS: ATTEND Specialist
DX: Z34.82 Encounter for supervision of other normal pregnancy, second trimester (principal)

== ENCOUNTER → 2016-12-27 | Outpatient (CLI) | payer OTHER ==
--- NOTE | 2016-12-27 11:13 | REP ---
Obstetric ultrasound, stat request for spotting: There is a single intrauterine gestation in a vertex presentation. heart rate is 139 bpm. Cervix is 3.9 cm length. Amniotic fluid index is 17.2 (9.1 - 23.2). The placenta is anterior. There is no placenta previa or placental abruptio. Placenta demonstrates grade 1 maturity. A uterine anterior fibroid is identified measuring up to 3.4 cm. Gestational age by the first ultrasound during this gestation is 20 weeks 6 days with an ASIF of 03/15/2017. biophysical profile: breathing 2 movement 2, tone 2, amniotic fluid volume 2 total /8. Umbilical cord Doppler assessment: SD ratio 2.79 (2.5 - 3.5) Resistive index 0.64 (0.59 - 0.75) Diastolic flow velocity 10.4 cm/sec. These values are in their normal ranges. Signed by Kenji Lewis MD 12/27/2016 11:04 A
== END ==
LOC: M RAD 10:04
PROVIDERS: ATTEND Advanced Practice Midwife
DX: O26.853 Spotting complicating pregnancy, third trimester (principal)

== ENCOUNTER → 2017-02-02 | Outpatient (CLI) | payer OTHER ==
[~2017-02-02] MED LIST changes: +COLA100C5 PO; +IBUP-1114 PO; +IRON65TA PO; +PRENTAB9 PO
--- NOTE | 2017-02-03 08:11 | REP ---
Clinical: Spotting. Growth evaluation. Comparison: 12/27/2016 . Findings: Examination demonstrates a single live intrauterine in cephalic presentation. motion is identified by technologist. Placenta is noted anteriorly and grade one without evidence for placenta previa or abruption. Amniotic fluid volume is normal. Cervix measures 3.8 cm in length and appears closed. No evidence for nuchal cord. Gestational age by LMP 34 weeks 4 days with ASIF 03/12/2017 . Gestational age by current measurements 34 weeks 3 days with ASIF on 05/19 . FHR equals 144 beats per minute. Estimated weight 2663 grams ( 62nd percentile). Amniotic fluid index equals 10.7 cm (8.0 - 24.9). Umbilical cord SD ratio equals 2.40 (2.00 - 3.00). Impression: Single live intrauterine in cephalic presentation demonstrating appropriate interval growth. No gross abnormalities are identified. Amniotic fluid index and estimated weight are within normal range. Signed by Sudheer De León MD 02/03/2017 04:37 A
== END ==
LOC: M SMT 10:52
PROVIDERS: ATTEND Advanced Practice Midwife
DX: O26.853 Spotting complicating pregnancy, third trimester (principal); Z3A.34 34 weeks gestation of pregnancy

== ENCOUNTER → 2017-02-14 | Outpatient (REF) | payer OTHER | LOC: M LAB REF 12:56 | PROVIDERS: ATTEND Specialist | DX: O09.523 Supervision of elderly multigravida, third trimester (principal); Z3A.00 Weeks of gestation of pregnancy not specified ==

== ENCOUNTER 2017-03-16 16:11 | Inpatient (IN) | payer OTHER ==
[~2017-03-16] VITALS: Ht 172.7 cm; Wt 104.6 kg
[2017-03-16] VITALS (25 sets, daily range): BP systolic 98–183; BP diastolic 56–96
[~2017-03-16 16:11] MED LIST changes: -COLA100C5 PO; -IBUP-1114 PO; -IRON65TA PO; -PRENTAB9 PO
[2017-03-16] MEDS ORDERED: IRON65TA PO (17:10)
[2017-03-16] MEDS ORDERED: LACTATED RINGER'S 1000 ML IV STA (17:25)
[2017-03-16] MEDS ORDERED: LR 1,000 ML IV SCH (17:25)
[2017-03-16] MEDS ORDERED: OXYTOCIN DRIP 30 UNITS in APPROPRIATE DILUENT 1 EA IV SCH (17:30)
--- NOTE | 2017-03-16 18:02 | HPEPDOC ---
Obstetrical History & Physical General Date of Admission Mar 16, 2017 at 16:11 History of Present Illness Chief Complaint: Induction of labor (next) Information Provided By: Patient Age: 36 : 3 Term: 1 Pre-term: 0 Abortions: 1 Livin Care Care: Good Care Number of Visits: 16 Dating Final EDC: Mar 12, 2017 Final EDC by: LMP LMP: Jun 05, 2016 1st Trimester Date: Mar 15, 2017 EGA at Admission: 40 Antepartum Course Diagnos(e)s Advanced maternal age and third trimester bleeding Pre- weight (lbs.): 174 Admission Weight (lbs.): 230 Change in Weight (lbs.): 56 Past Medical History Past Obstetrical History #1: Past Obstetrical History: Primgravida Date of Delivery: Mar 16, 2017 (December 2012) Gestation: 42 Type of Delivery: Spontaneous Vaginal Del. 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 Past Medical History Medical History Anemia, asthma, seasonal allergies Surgical History: Dilatation and Curettage, Other (tympanostomy) Family History Significant Family History: Asthma Social History Marital Status: Family situation: Spouse/partner home Psychosocial History: No pertinent psych hx * Smoker: non-smoker Alcohol: Denies Drugs: denies Abuse Violence Screening Have you been hit/kicked/slapp: No Have you been sexually assault: No Imunizations Tdap status: current Influenza Status: needs Allergies Coded Allergies: No Known Allergies (Unverified , 12/03/12) Medications Miscellaneous Medications (Iron) 325 Mg Tab, 325 MG PO Physical Examination Physical Examination GENERAL: Alert and oriented times three. BREAST: . ABDOMEN: Gravid and non-tender to touch. FETUS: Is vertex (VTX) by sterile vaginal examination (SVE), fetus is vertex ( VTX) by Michele. HEART RATE: Regular rate and rhythm. LUNGS: Clear to auscultation (CTA). EXTREMITIES: No edema. No clonus. Deep tendon reflexes (DTRs) + . Vital Signs/I&O Laboratory Data 24H LABS Laboratory Tests 2 03/16/17 16:49: Serology Scanned Report Hepatitis B Testing Pertinent Laboratoy Data Blood Type: O+ RBC Antibody Screen: Negative HIV: Negative Hepatitis B: Negative Hepatitis C: Negative Rapid Plasma Reagin: Nonreactive Rubella: Immune Chlamydia/Gonorrhea: Negative Group B Streptococcus: Negative Quad Screen Test: Declined Glucose Tolerance Test: 80 Anatomy Ultrasound Ultrasound Date: Oct 27, 2016 Normal Anatomy: Yes Placenta Previa: No Other Ultrasounds 02/02/2017 spotting. Estimated weight 2663 g, 62nd percentile, normal fluid Steroid Therapy Steroid Therapy: No Vaginal Examination Dilation: 2cm Effacement: 60-70% Station: -2 Cervical Consistency: Soft Cervical Position: Posterior Presentation: Cephalic presentation Assessment Heart Rate (FHR): 120 Variability: Moderate Accelerations: Positive Decelerations: None Tocometer Contractions: Yes Frequency: every 2-5 min. Duration: less than 60 seconds Strength: palpated as mild Assessment/Plan Assessment Katarina is a 36-year-old (G) 3 para (P) 1 -0 -1-1 at 40 + 4 weeks by 10- week ultrasound. Presents to Labor and Delivery (L&D) for elective induction of labor at term. Plan Admit and orient. Tongue Stitcher and consent. Diet: Clear liquids. Group B Streptococcus (GBS) negative. Labs and intravenous (IV) per unit protocol. Counseled on Pitocin and induction of labor (IOL). Lactated Ringers (LR): Bolus 500 mL, then at 125 mL/hr. Anticipate normal spontaneous delivery (). C-S as appropriate. Patient plans epidural Linda Gonzalez CNM Mar 16, 2017 17:33
[2017-03-16 18:39] LABS: MEAN CORPUSCULAR HEMOGLOBIN 31.1 pg (27.0-33.0); MEAN CORPUSCULAR HGB CONC 34.5 g/dl (32.0-36.5); MEAN CORPUSCULAR VOLUME 90.1 fl (80.0-96.0); RED CELL DISTRIBUTION WIDTH 14.5 % (11.5-14.5); WHITE BLOOD COUNT 8.1 K/mm3 (4.0-10.0)
--- NOTE | 2017-03-16 21:59 | ED PDOC ---
Provider Note Feeling contractions, but comfortable at present. Pitocin at 4 milliunits. Contractions 2-3 minutes apart, 60 seconds. heart 135, moderate variability with accelerations, category 1. Sterile vaginal exam 2-3 cm, 50% effaced, -2 station. Artificial rupture of membranes at 2152, moderate amounts of clear fluid. Patient planning an epidural. Anticipate normal spontaneous vaginal Linda Gonzalez CNM Mar 16, 2017 21:59
[2017-03-16] MEDS ORDERED: FENTANYL 2MCG/ML ROPIVACAINE 0.2% IN 0.9% NACL 200ML IVBAG As Ordered ONE (22:32)
[2017-03-17] VITALS (20 sets, daily range): BP systolic 89–123; BP diastolic 55–75
[2017-03-17] MEDS ORDERED: ePHEDrine SULFATE 25 MG/5 ML(5MG/ML) SYRINGE As Ordered ONE (00:36)
[2017-03-17] MEDS ORDERED: LACTATED RINGER'S 1000 ML IV PRN (01:30)
[2017-03-17] MEDS ORDERED: ePHEDrine SULFATE 25 MG/5 ML(5MG/ML) SYRINGE IV PRN (01:30)
[2017-03-17] MEDS ORDERED: EPIDURAL/PCA KEYS XX PRN (01:30)
[2017-03-17] MEDS ORDERED: REFRIGERATOR IV KEYS XX PRN (01:30)
[2017-03-17] MEDS ORDERED: EPIDURAL COMMENT XX SCH (01:30)
[2017-03-17] MEDS ORDERED: FENTANYL/ROPIVACAINE/NACL BAG 200 ML EPIDURAL SCH (01:30)
[2017-03-17] MEDS ORDERED: ONDANSETRON 4MG/2ML VIAL (J2405) IV PRN (01:30)
[2017-03-17] MEDS ORDERED: diphenhydrAMINE INJ 50MG/ML VIAL (J1200) IV PRN (01:30)
[2017-03-17] MEDS ORDERED: NALOXONE INJ 0.4 MG/1 ML VIAL (J2310) IV PRN (01:30)
[2017-03-17 05:23] LABS: CORD GAS ABE A -7.1; CORD GAS HCO3 A 22.2 MEQ/L; CORD GAS O2 SAT A 43.3 %; CORD GAS PH A 7.187 UNITS; CORD GAS PO2 A 25.5 mmHg; CORD GAS SBC A 17.5 MEQ/L; CORD GAS TCO2 A 24.1 MEQ/L
[2017-03-17 05:24] LABS: CORD GAS ABE V -4.1; CORD GAS HCO3 V 21.7 MEQ/L; CORD GAS O2 SAT V 47.3 %; CORD GAS PCO2 V 42.2 mmHg; CORD GAS PH V 7.329 UNITS; CORD GAS SBC V 19.9 MEQ/L
[2017-03-17] MEDS ORDERED: LIDOCAINE 1% MDV INJ 50 ML VIAL As Ordered ONE (05:42)
[2017-03-17] MEDS ORDERED: IBUPROFEN 800 MG TAB As Ordered ONE (05:42)
[2017-03-17] MEDS ORDERED: DIBUCAINE 1% OINTMENT 30GM TOP PRN (05:45)
[2017-03-17] MEDS ORDERED: RHOGAM 300 MCG (1500 IU) INJ (J2790) IM SCH (05:45)
[2017-03-17] MEDS ORDERED: DOCUSATE SODIUM 100 MG CAP PO PRN (05:45)
[2017-03-17] MEDS ORDERED: MOM 30ML SUSPENSION UDC PO PRN (05:45)
[2017-03-17] MEDS ORDERED: MEASLES,MUMPS,RUBELLA VACCINE INJ (MMR-II) (90707) SC SCH (05:45)
[2017-03-17] MEDS ORDERED: ANUSOL HC CREAM 30GM TOP PRN (05:45)
[2017-03-17] MEDS ORDERED: LIDOCAINE 1% MDV INJ 50 ML VIAL INFIL ONE (05:45)
[2017-03-17] MEDS ORDERED: ACETAMINOPHEN 500 MG TAB PO PRN (05:45)
[2017-03-17] MEDS: IBUPROFEN 800 MG TAB PO PRN ×3 (05:45→21:34)
--- NOTE | 2017-03-17 05:57 | DNPDOC ---
[facility] Delivery Note Delivery Note DATE OF DELIVERY: 03/17/2017 PREDELIVERY DIAGNOSIS: 40-5/7 weeks' gestation and labor. Induction of labor. Third trimester bleeding POST DELIVERY DIAGNOSIS: Delivered. PROCEDURE: Spontaneous vaginal delivery. Bale Breaker Operator Linda Gonzalez and Deisi Pritchett student nurse human factors engineer ANESTHESIA: Epidural. ESTIMATED BLOOD LOSS: 350 mL. FINDINGS: 10 pound 10 ounce, 4830 g male , Score 9/9, nuchal cord times 1. DELIVERY SUMMARY: Patient is a 36-year-old 3 now para 2 -0 -1-2 who was admitted to labor and delivery for term induction of labor at 40 weeks 4 days. Artificial rupture of membranes, large amounts of clear fluid at 2152. Utilized epidural for labor coping. Fully dilated, 0341. Viable male delivered ROP without difficulty after reduction of loose nuchal cord at 0505. Spontaneous respirations with stimulation transitioned on maternal abdomen. Cord doubly clamped and cut after pulsation ceased, Apgars 9 and 9. Cord gases obtained. Results arterial 7.187, base excess -7.1. Venous 7.329, base excess -4.1. Placenta delivered May and intact at 0511. Fundus firmed with massage and IV Pitocin bolus. Estimated blood loss 350 mL. Perineum intact. Left vaginal wall sebaceous cyst 2 cm x 1 cm noted, infiltrated with lidocaine and cleansed with Betadine lanced with a single incision for drainage of nonodorous milky fluid. Excellent hemostasis. Sponge, sharp and instrument count correct. Parents are naming their son, Linda Gonzalez CNM Mar 17, 2017 05:57
[2017-03-17] MEDS: METHYLERGONOVINE MALEATE 0.2 MG TAB PO SCH ×3 (06:03→18:11)
[2017-03-17] MEDS: PRENATAL VITAMINS CHEWABLE TABLET PO SCH (09:21)
[2017-03-18] MEDS: METHYLERGONOVINE MALEATE 0.2 MG TAB PO SCH ×2 (00:22→05:46)
[2017-03-18 05:45] VITALS: BP 112/76
[2017-03-18] MEDS: PRENATAL VITAMINS CHEWABLE TABLET PO SCH (08:30)
[2017-03-18] MEDS ORDERED: METHYLERGONOVINE MALEATE 0.2 MG TAB PO PRN (09:15)
[2017-03-18] MEDS ORDERED: ACET50TA PO (10:03)
[2017-03-18] MEDS ORDERED: COLA100C5 PO (10:03)
[2017-03-18] MEDS ORDERED: PRENTAB9 PO (10:03)
[2017-03-18] MEDS ORDERED: MOM30SS PO (10:03)
[2017-03-18] MEDS ORDERED: IBUP-1114 PO (10:03)
== END 2017-03-18 11:30 | disposition home or self-care (01) | DRG 560 ==
LOC: M LDI 16:11 → M OBS 03-17 08:17
PROVIDERS: ADMIT Advanced Practice Midwife; ATTEND Advanced Practice Midwife
PROC: 3E033VJ Introduction of Other Hormone into Peripheral Vein, Percutaneous Approach (ICD-10-PCS; 2017-03-16)
PROC: 10E0XZZ Delivery of Products of Conception, External Approach (ICD-10-PCS; principal; 2017-03-17)
PROC: 10907ZC Drainage of Amniotic Fluid, Therapeutic from Products of Conception, Via Natural or Artificial Opening (ICD-10-PCS; 2017-03-17)
PROC: 0UBG7ZZ Excision of Vagina, Via Natural or Artificial Opening (ICD-10-PCS; 2017-03-17)
DX: O48.0 Post-term pregnancy (principal); N94.89 Other specified conditions associated with female genital organs and menstrual cycle; Z37.0 Single live birth; Z3A.40 40 weeks gestation of pregnancy; O09.523 Supervision of elderly multigravida, third trimester; O99.89 Other specified diseases and conditions complicating pregnancy, childbirth and the puerperium; O26.899 Other specified pregnancy related conditions, unspecified trimester

== ENCOUNTER → 2017-03-27 | Outpatient (REF) | payer OTHER ==
[~2017-03-27] MED LIST changes: +COLA100C5 PO; +IBUP-1114 PO; +IRON65TA PO; +PRENTAB9 PO
== END ==
LOC: M LAB REF 17:18
PROVIDERS: ATTEND Obstetrics & Gynecology
DX: R30.0 Dysuria (principal)

== ENCOUNTER → 2017-06-14 | Outpatient (REF) | payer OTHER | LOC: M LAB REF 13:33 | PROVIDERS: ATTEND Advanced Practice Midwife | DX: Z12.4 Encounter for screening for malignant neoplasm of cervix (principal) ==

== ENCOUNTER → 2018-03-22 | Outpatient (CLI) | payer OTHER | LOC: M RAD 11:46 | DX: N60.32 Fibrosclerosis of left breast (principal) | CPT/HCPCS: 76642 ==

== ENCOUNTER → 2020-05-13 | Outpatient (CLI) | payer OTHER ==
[~2020-05-13] MED LIST changes: -ACET50TA PO; -DOCU10ELUD PO; +DOCU5LIQ PO; +MAPA500T17 PO; +MAPA500T2 PO
--- NOTE | 2020-05-15 04:33 | REP ---
INDICATION: N93.9 AUB COMPARISON: None. TECHNIQUE: Transabdominal pelvic ultrasound followed by transvaginal examination for better evaluation of the endometrium and adnexa with color Doppler evaluation of the ovaries. FINDINGS: Bladder is unremarkable and measures 11.5 x 10.8 x 6.0 cm. Anteverted uterus measures 8.1 x 3.9 x 4.6 cm with small 9 mm anterior intramural fibroid noted. The endometrial complex measures 10.0 mm thickness. Bilateral ovaries are normal in appearance and vascularity without evidence for torsion. Right ovary measures 3.2 x 1.9 x 2.0 cm with multiple follicles; R I = 0.46. Left ovary measures 2.5 x 1.8 x 2.4 cm with multiple follicles; R I = 0.51. No pelvic fluid or adnexal mass lesion IMPRESSION: Subcentimeter anterior intramural fibroid <Electronically signed by Sudheer DeL eón > 05/15/20 0429
== END ==
LOC: M WHC 10:04
PROVIDERS: ATTEND Obstetrics & Gynecology
DX: N93.9 Abnormal uterine and vaginal bleeding, unspecified (principal); D25.1 Intramural leiomyoma of uterus

== ENCOUNTER → 2020-06-09 | Outpatient (REF) | payer OTHER | LOC: M SFHCWAGY 13:39 | PROVIDERS: ATTEND Obstetrics & Gynecology | DX: N93.9 Abnormal uterine and vaginal bleeding, unspecified (principal) ==

== ENCOUNTER → 2020-12-28 | Outpatient (CLI) | payer OTHER ==
[~2020-12-28] MED LIST changes: +FERR325T82 PO; +VITMTA PO
== END ==
LOC: M LABSMTC 09:05
PROVIDERS: ATTEND Anesthesiology
DX: Z01.812 Encounter for preprocedural laboratory examination (principal); Z20.822 Contact with and (suspected) exposure to COVID-19

== ENCOUNTER 2021-01-01 06:03 | Day surgery (SDC) | payer OTHER ==
[~2021-01-01] VITALS: Ht 172.7 cm; Wt 68.9 kg
[2021-01-01] VITALS (8 sets, daily range): BP systolic 111–133; BP diastolic 60–74
[~2021-01-01 06:03] MED LIST changes: +LR 1,000 ML IV ONE; +ceFAZolin SOD 2 GM in IV 1 EA IV ONE
[2021-01-01 06:43] LABS: HEMOGLOBIN 11.5 g/dl (12.0-15.5); MEAN CORPUSCULAR HEMOGLOBIN 28.4 pg (27.0-33.0); MEAN CORPUSCULAR HGB CONC 32.9 g/dl (32.0-36.5); MEAN CORPUSCULAR VOLUME 86.4 fl (80.0-96.0); PLATELET COUNT, AUTOMATED 288 10^3/uL (150-450); RED BLOOD COUNT 4.05 10^6/uL (4.00-5.40); WHITE BLOOD COUNT 5.3 10^3/uL (4.0-10.0)
[2021-01-01] MEDS ORDERED: METHYLENE BLUE 0.5% (5MG/ML) 10 ML AMP (PROVAYBLUE) As Ordered ONE (07:10)
[2021-01-01] MEDS ORDERED: BUPIVACAINE HCL 0.25% 30ML VIAL As Ordered ONE (07:10)
[2021-01-01 07:12] LABS: HCG, SERUM QUALITATIVE NEGATIVE (NEGATIVE)
[2021-01-01] MEDS ORDERED: dexameTHASONE 4 MG/ML 1ML VIAL (J1100 PER 1MG) As Ordered ONE (07:21)
[2021-01-01] MEDS ORDERED: SUGAMMADEX SODIUM 500 MG/5 ML VIAL (BRIDION) As Ordered ONE (07:21)
[2021-01-01] MEDS ORDERED: ACETAMINOPHEN 1000MG 100ML IV BTL (OFIRMEV) (J0131 PER 10MG) As Ordered ONE ×2 (07:21→07:24)
[2021-01-01] MEDS ORDERED: LIDOCAINE 2% 100MG/5ML SDV (FOR ANES.) As Ordered ONE (07:21)
[2021-01-01] MEDS ORDERED: KETOROLAC 60MG 2ML VIAL As Ordered ONE (07:21)
[2021-01-01] MEDS ORDERED: ONDANSETRON 4MG/2ML VIAL As Ordered ONE (07:21)
[2021-01-01] MEDS ORDERED: propofoL 200 MG/20 ML VIAL As Ordered ONE (07:21)
[2021-01-01] MEDS ORDERED: ROCURONIUM BROMIDE 50 MG/5 ML VIAL As Ordered ONE ×2 (07:21→09:17)
[2021-01-01] MEDS ORDERED: fentaNYL 100 MCG/2 ML INJECTION (J3010) As Ordered ONE (07:23)
[2021-01-01] MEDS ORDERED: MIDAZOLAM INJ 2MG/2ML VIAL (J2250 PER 1MG) As Ordered ONE (07:23)
[2021-01-01] MEDS ORDERED: HYDROmorphone HCL 2 MG/ML 1ML VIAL (J1170) As Ordered ONE (07:23)
[2021-01-01] MEDS ORDERED: ONDANSETRON 4 MG TAB PO PRN (09:55)
[2021-01-01] MEDS ORDERED: PERCOCET 5MG/325MG TAB PO PRN (09:55)
--- NOTE | 2021-01-01 09:55 | ROOPDOC ---
[facility] Report Of Operation Report of Operation DATE OF PROCEDURE: 01/01/2021 PREPROCEDURE DIAGNOSES: Abnormal uterine bleeding, chronic pelvic pain. POSTPROCEDURE DIAGNOSES: Same. PROCEDURE: Robotic-assisted total laparoscopic hysterectomy, bilateral salpingectomy, cystoscopy SURGEON: Lloyd Harris D.O. [employer]ACOG [employer] EXAMINER: none ANESTHESIA: General endotracheal. ESTIMATED BLOOD LOSS: Approximately 100 mL. FLUIDS REPLACED: 1300 mL LR URINE OUTPUT: 200 mL COMPLICATIONS: None. FINDINGS: Normal-appearing ovaries bilaterally. Uterus was approximately 10 centimeters in greatest dimension. Cystoscopy: Bilateral ureteral orifice efflux, no bladder injury/suture material. PREOPERATIVE ANTIBIOTIC PROPHYLAXIS: Ancef 2 g IV 1. SPECIMEN(S): Uterus w/ cervix, bilateral fallopian tubes DESCRIPTION OF PROCEDURE: The patient was counseled, consented on the respective benefits, indications, alternatives of procedure. Informed consent was obtained. She was taken to the o perating room with an IV running. She was placed on the operating table in dorsal supine position. Gen. anesthesia was administered and the airway was secured without any difficulty. She was placed in the low lithotomy position. . She was prepared and draped in the normal sterile fashion. A time out was performed per protocol. A Castellano catheter was placed under sterile conditions. A sterile speculum was placed resulting in good visualization of the cervix. A single-tooth tenaculum was used to grasp the anterior lip cervix. The cervix was sequentially dilated with Pascual dilators. A V-Care uterine manipulator was placed without any difficulty. The single-tooth tenaculum was removed, as well as the speculum. A sterile glove switch was performed. Attention was turned to the abdomen. A 2mm incision was made in the umbilicus, and through this incision a Veress needle was inserted into the intraperitoneal cavity. Intraperitoneal placement was confirmed with ease of flow of normal saline, positive drop test, no return on aspiration, and an opening pressure of less than 10 mmHg upon initial insufflation. The abdomen was insufflated with 2 L of gas. The Veress needle was removed. A supraumbilical 8 mm incision was made. Through this incision, the robotic trochar/cannula was inserted into the intraperitoneal cavity under direct visualization. No incidental bleeding nor injury was noted. Patient was placed in 30 Trendelenburg. The right and left trocars/cannulas were placed on both the right and left side through 8 mm incisions, guided by laparoscopic visualization. No incidental bleeding nor injury was noted. The robot was docked in typical fashion. The instruments were inserted, guided by laparoscopic visualization. My attention was turned to the robotic console. Using the vessel sealer device, the right and left fallopian tubes were amputated. The fallopian tubes were brought through the assist-port cannula without any difficulty. The right utero-ovarian ligament and right round ligament were sequentially clamped, coagulated and transected with the vessel sealer device. The vesicouterine peritoneum was dissected with the vessel sealer device to create the bladder flap, thus mobilizing the lower uterine segment and cervix off of the bladder. The right uterine vasculature was sequentially clamped, coagulated and transected above the colpotomy cup. The left utero-ovarian ligament and left round ligament were sequentially clamped, coagulated and transected with the vessel sealer device. The remainder of the bladder flap was dissected using the vessel sealer device and blunt dissection. The left uterine vasculature was sequentially clamped, coagulated and transected above the colpotomy cup. The outline of the entire V- care colpotomy cup was able to be delineated. Excellent blanching of the uterus was noted. A circumferential colpotomy was performed using the da [place]ito monopolar charu, following the contour of the cup. The amputated cervix and uterus were brought through the colpotomy into and out of the vagina, intact as one unit. The colpotomy was closed with the V-lock barbed suture in running fashion, thus creating the vaginal cuff. Excellent hemostasis was noted throughout the steps above. Kera was placed over the vaginal cuff to ensure hemostasis. The instruments were removed from the abdomen and the robot was un-docked. The gas was released from the abdomen and the patient was taken out of Trendelenburg. I re-scrubbed, and attention was turned to the pelvis. The Castellano catheter was removed. The cystoscope was placed transurethrally into the bladder and normal saline was instilled. No bladder injury/suture material was noted. IV methylene blue had been administered by anesthesia and bilateral UO efflux was confirmed. The fluid was drained out of the bladder through the cystoscope device, then the cystoscope was removed. The vagina was copiously irrigated. A sterile digital vaginal exam revealed no significant bleeding and an intact vaginal cuff. A sterile glove switch was performed. The da Chito cannulas were removed. The skin incisions were closed with 4-0 Monocryl in subcuticular fashion. Sponge, needle and instrument counts were correct per protocol. The patient tolerated the entire procedure very well. She was transferred to the PACU in good and stable condition. DO TOSHIA Sanchez JONATHAN R. DO Jan 01, 2021 09:55
[2021-01-01] MEDS ORDERED: OXYC1TAB23 PO (09:58)
[2021-01-01] MEDS ORDERED: IBUP80TA PO (09:59)
[2021-01-01] MEDS ORDERED: DOK1CAP7 PO (09:59)
[2021-01-01] MEDS ORDERED: ONDANSETRON 4MG/2ML VIAL IV PRN (10:05)
[2021-01-01] MEDS ORDERED: MEPERIDINE INJ 25 MG/ML VIAL (J2175) IV PRN (10:05)
[2021-01-01] MEDS: oxyCODONE 5MG TAB PO PRN ×2 (10:22→11:13)
[2021-01-01] MEDS: fentaNYL 100 MCG/2 ML INJECTION (J3010) IV PRN ×4 (10:23→10:49)
[2021-01-01] MEDS: LR 1,000 ML IV SCH ×4 (10:38→17:57)
[2021-01-01] MEDS: DOCUSATE SODIUM 100MG CAPSULE PO SCH ×2 (12:18→20:05)
[2021-01-01] MEDS: KETOROLAC 30 MG/ML 1ML VIAL IV SCH ×2 (12:19→20:05)
[2021-01-01] MEDS: PERCOCET 5MG/325MG TAB PO PRN (17:57)
[2021-01-02] MEDS: KETOROLAC 30 MG/ML 1ML VIAL IV SCH (00:18)
[2021-01-02] MEDS: LR 1,000 ML IV SCH ×2 (00:43→09:55)
[2021-01-02 02:00] VITALS: BP 127/66
[2021-01-02] MEDS: PERCOCET 5MG/325MG TAB PO PRN (02:52)
[2021-01-02 06:00] VITALS: BP 147/65
[2021-01-02 06:25] LABS: EOS % 0.4 % (0.0-3.0); HEMATOCRIT 28.1 % (36.0-47.0); LYMPH # 1.6 10^3/uL (1.5-5.0); LYMPH % 32.3 % (24.0-44.0); MEAN CORPUSCULAR HEMOGLOBIN 28.2 pg (27.0-33.0); MEAN CORPUSCULAR VOLUME 88.1 fl (80.0-96.0); MONO # 0.7 10^3/uL (0.0-0.8); MONO % 13.7 % (2.0-8.0); NEUTROPHILS # 2.6 10^3/uL (1.5-8.5); NEUTROPHILS % 53.4 % (36.0-66.0); PLATELET COUNT, AUTOMATED 203 10^3/uL (150-450); RED BLOOD COUNT 3.19 10^6/uL (4.00-5.40); WHITE BLOOD COUNT 4.8 10^3/uL (4.0-10.0)
[2021-01-02] MEDS: DOCUSATE SODIUM 100MG CAPSULE PO SCH (08:36)
[2021-01-02] MEDS ORDERED: IBUPROFEN 800 MG TAB PO SCH (09:00)
[2021-01-02 10:00] VITALS: BP 125/72
== END 2021-01-02 12:25 | disposition home or self-care (01) ==
LOC: M SDC 06:03 → M MSPAV 11:42 → M SDC 01-02 12:25
PROVIDERS: ATTEND Obstetrics & Gynecology
DX: N93.9 Abnormal uterine and vaginal bleeding, unspecified (principal); D25.1 Intramural leiomyoma of uterus; N72 Inflammatory disease of cervix uteri; J45.909 Unspecified asthma, uncomplicated; G43.909 Migraine, unspecified, not intractable, without status migrainosus; Z87.891 Personal history of nicotine dependence
CPT/HCPCS: 36415; 58571; 84703; 85025; 85027; 86850; 86900; 86901; 88307; 96360; 96361; J0131; J0690; J1100; J1170; J1885; J2250; J2405; J3010; Q9968; S2900

== ENCOUNTER → 2021-08-09 | Outpatient (CLI) | payer OTHER ==
[~2021-08-09] MED LIST changes: +DOK1CAP4 PO; -LR 1,000 ML IV ONE; +OXYC1TAB23 PO; -ceFAZolin SOD 2 GM in IV 1 EA IV ONE
== END ==
LOC: M RAD 07-22 13:29
PROVIDERS: ATTEND Nurse Practitioner Family
DX: E05.00 Thyrotoxicosis with diffuse goiter without thyrotoxic crisis or storm (principal)
CPT/HCPCS: 78012; A9516

== ENCOUNTER → 2023-01-13 | Outpatient (CLI) | payer OTHER | LOC: M WHC 09:53 | PROVIDERS: ATTEND Obstetrics & Gynecology | DX: R10.2 Pelvic and perineal pain (principal); Z90.710 Acquired absence of both cervix and uterus ==